=== PATIENT | male | born 1950 | race American Indian/Alaskan Native ===

== ENCOUNTER 2017-08-10 05:37 | Emergency (ER) | payer MEDICARE ==
[2017-08-10] MEDS ORDERED: ASPIRIN PO ONE (06:41)
[2017-08-10 07:34] LABS: Basophils % (Auto) 0.8 % (0.0-1.8); Hematocrit 44.8 % (35.5-45.6); Hemoglobin 14.9 gm/dl (11.8-15.2); Lymphocytes # (Auto) 1.6 K/mm3 (1.2-5.4); Lymphocytes % (Auto) 33.6 % (13.4-35.0); Mean Corpuscular HGB Conc 33 % (32-34); Mean Corpuscular Hemoglobin 29 pg (28-32); Mean Corpuscular Volume 87 fl (84-94); Monocytes # (Auto) 0.5 K/mm3 (0.0-0.8); Monocytes % (Auto) 10.8 % (0.0-7.3); Platelet Count 240 K/mm3 (140-440); Red Blood Count 5.16 M/mm3 (3.65-5.03); Red Cell Distribution Width 13.2 % (13.2-15.2)
[2017-08-10 07:42] LABS: INR 0.9 (0.87-1.13)
[2017-08-10 07:43] LABS: Partial Thromboplastin Time 29.5 Sec. (24.2-36.6)
[2017-08-10 07:52] LABS: BUN/Creatinine Ratio 10; Blood Urea Nitrogen 11 mg/dL (9-20); Hemolysis Index 10
--- NOTE | 2017-08-10 11:58 | Emergency Department Report ---
ED Chest Pain HPI - General Chief Complaint: Chest Pain Stated Complaint: CHEST PAIN,TOOTHACHE Time Seen by Provider: 08/10/17 11:35 Source: patient Mode of arrival: Ambulatory Limitations: No Limitations - History of Present Illness Initial Comments: PT. SAYS THAT A FEW DAYS EARLIER HE WAS HAVING PAIN ON THE RIGHT SIDE OF HIS JAW Complaint: chest pain Onset/Timin -: Gradual Time: 02:00 Onset: during rest Pain Location: substernal Pain Radiation: none Severity: moderate Severity scale (0 -10): 5 Quality: sharp Consistency: constant Improves With: other (WATER) Worsens With: nothing Treatments Prior to Arrival: none - Related Data Home Medications Medication Instructions Recorded Confirmed Last Taken Carisoprodol [Soma] 350 mg PO QDAY PRN 06/16/17 06/16/17 Unknown Oxycodone HCl/Acetaminophen 1 each PO QDAY PRN 06/16/17 06/16/17 Unknown [Percocet 10/325 mg] Previous Rx's Medication Instructions Recorded Last Taken Type Apixaban [Eliquis] 5 mg PO BID #60 tablet 06/19/17 Unknown Rx Apixaban [Eliquis] 10 mg PO Q12HR #14 tablet 06/19/17 Unknown Rx Omeprazole 20 mg PO DAILY 30 Days #30 08/10/17 Unknown Rx tablet. Allergies Allergy/AdvReac Type Severity Reaction Status Date / Time No Known Allergies Allergy Unverified 02/18/15 16:27 Heart Score - HEART Score History: Slightly suspicious EKG: Normal Age: > 65 Risk factors: No known risk factors Troponin: < normal limit HEART Score: 2 ED Review of Systems ROS: Stated complaint: CHEST PAIN,TOOTHACHE Other details as noted in HPI Comment: All other systems reviewed and negative ED Past Medical Hx - Past Medical History Hx Pulmonary Embolism: Yes Additional medical history: chronic lower back pain - Surgical History Past Surgical History?: No - Social History Smoking Status: Never Smoker Substance Use Type: None - Medications Home Medications: Home Medications Medication Instructions Recorded Confirmed Last Taken Type Carisoprodol [Soma] 350 mg PO QDAY PRN 06/16/17 06/16/17 Unknown History Oxycodone HCl/Acetaminophen 1 each PO QDAY PRN 06/16/17 06/16/17 Unknown History [Percocet 10/325 mg] Apixaban [Eliquis] 5 mg PO BID #60 tablet 06/19/17 Unknown Rx Apixaban [Eliquis] 10 mg PO Q12HR #14 tablet 06/19/17 Unknown Rx Omeprazole 20 mg PO DAILY 30 Days #30 08/10/17 Unknown Rx tablet. ED Physical Exam - General Limitations: No Limitations General appearance: alert, in no apparent distress - Head Head exam: Present: atraumatic, normocephalic - Eye Eye exam: Present: normal appearance - ENT ENT exam: Present: mucous membranes moist - Neck Neck exam: Present: normal inspection - Respiratory Respiratory exam: Present: normal lung sounds bilaterally. Absent: respiratory distress - Cardiovascular Cardiovascular Exam: Present: regular rate, normal rhythm. Absent: systolic murmur, diastolic murmur, rubs, gallop - GI/Abdominal GI/Abdominal exam: Present: soft, normal bowel sounds. Absent: tenderness - Rectal Rectal exam: Present: deferred - Extremities Exam Extremities exam: Present: normal inspection - Back Exam Back exam: Present: normal inspection, full ROM - Neurological Exam Neurological exam: Present: alert, oriented X3 - Psychiatric Psychiatric exam: Present: normal affect, normal mood - Skin Skin exam: Present: warm, dry, intact, normal color. Absent: rash ED Course Vital Signs 08/10/17 08/10/17 08/10/17 06:37 09:55 09:57 Temperature 98.6 F 98 F Pulse Rate 97 H 85 Respiratory 18 16 16 Rate Blood Pressure 152/96 Blood Pressure 116/79 [Left] O2 Sat by Pulse 99 100 100 Oximetry - Reevaluation(s) Reevaluation #1: 08/10/17 14:16 PT. SAID THE gi COCKTAIL HELPED HIS PAIN AND HE IS PAIN FREE RIGHT NOW. JACK score - Jack Score Age > 65: (1) Yes Aspirin use within the Past 7 Days: (0) No 3 or more CAD Risk Factors: (0) No 2 or more Angina events in past 24 hrs: (0) No Known CAD with more than 50% Stenosis: (0) No Elevated Cardiac Markers: (0) No ST Deviation Greater than 0.5mm: (0) No JACK Score: 1 ED Medical Decision Making - Lab Data Result diagrams: 08/10/17 07:16 08/10/17 07:16 - EKG Data -: EKG Interpreted by Me EKG shows normal: sinus rhythm (RATE OF 86), axis (NORMAL), intervals (NORMAL;) , QRS complexes (PVC'S), ST-T waves (NON SPECIFIC ST AND T WAVE CHANGES.) Critical care attestation.: If time is entered above; I have spent that time in minutes in the direct care of this critically ill patient, excluding procedure time. ED Disposition Clinical Impression: Gastritis, Atypical chest pain, GERD (gastroesophageal reflux disease) Disposition: TO HOME OR SELFCARE Is pt being admited?: No Does the pt Need Aspirin: No Condition: Stable Instructions: Chest Pain (ED), Gastroesophageal Reflux Disease (ED) Prescriptions: Omeprazole 20 mg PO DAILY 30 Days #30 tablet. Referrals: PRIMARY CARE, [Primary Care Provider] - 3-5 Days Time of Disposition: 14:22 Print Language: FINNISH
[2017-08-10] MEDS ORDERED: ALUM-MAG HYDROX-SIMETH 200-200-20MG/5ML PO ONE (12:01)
[2017-08-10] MEDS ORDERED: LIDOCAINE VISCOUS 2% PO ONE (12:01)
--- NOTE | 2017-08-10 12:42 | XRay Report ---
Single view chest: History: Chest pain. Findings: Normal cardiomediastinal silhouette the trachea is midline. No consolidation, pneumothorax or pleural effusion. Impression: No acute cardiopulmonary findings.
[2017-08-10 14:46] VITALS: BP 140/94
== END 2017-08-10 15:07 | disposition home or self-care (01) ==
LOC: ED 05:37
DX: K29.70 Gastritis, unspecified, without bleeding (principal); K21.9 Gastro-esophageal reflux disease without esophagitis
CPT/HCPCS: 36415; 71045; 80048; 84484; 85025; 85379; 85610; 85730; 93005; 93010; 99284

== ENCOUNTER 2018-08-12 06:44 | Day surgery (SDC) | payer MEDICARE ==
[2018-08-12] MEDS ORDERED: ECOTRIN PO NR (07:08)
[2018-08-12] MEDS ORDERED: NACL 0.9% 500 ML 500 ML IV SCH (08:00)
[2018-08-12] MEDS ORDERED: HEPARIN/NS 5000 UNIT/500ML(CATH LAB) 1,000 ML IR ONE (12:19)
[2018-08-12] MEDS ORDERED: CALAN ONE (12:19)
[2018-08-12] MEDS ORDERED: XYLOCAINE 2% INFILTRATI ONE (12:19)
[2018-08-12] MEDS: VERSED ONE ×2 (12:40→12:43)
[2018-08-12] MEDS: SUBLIMAZE ONE ×2 (12:40→12:43)
[2018-08-12] MEDS: HEPARIN 10,000 UNITS/10 ML ONE ×2 (12:44→12:52)
[2018-08-12] MEDS ORDERED: NACL 0.9% 100 ML ONE (12:50)
--- NOTE | 2018-08-12 13:35 | Cardiac Catherization Report ---
The patient is a 67-year-old -[place] gentleman with history of atypical chest pains, abnormal nuclear imaging, was scheduled for cardiac catheterization for diagnostic purposes. The patient is aware of the procedure, potential complications, alternatives of therapy available. DESCRIPTION OF PROCEDURE: The patient was brought to the catheterization laboratory in a fasting condition. The patient was prepared in a standard fashion. The patient was evaluated for moderate sedation and was felt to be appropriate candidate for moderate sedation. The patient received IV Versed and fentanyl. Local anesthesia was given in the right wrist area. Subsequently, 5-[place] slender sheath was introduced. A 5-[place] multipurpose catheter was used to obtain the angiograms of the left coronary, right coronary artery, left ventriculogram done in DUMAS and BON projection. Subsequently, it was felt that the patient has a borderline lesion in a large ramus branch. For further evaluation of this lesion, fractional flow reserve measurement was made in a standard fashion, namely the patient received extra dose of IV heparin. Diagnostic catheter was exchanged to 6-[place] EBU 3.5 guiding catheter. [place] pressure wire was set up in a standard fashion. The patient received IV adenosine as the vasodilator. Fraction flow reserve measurement was made, which was found to be 0.92, that is not hemodynamically significant. Subsequently, catheter and sheath were removed. Final angiogram showed no evidence of any complications. Radial sheath was removed and radial band was applied. The patient was sedated from 12:40 noon to 1:00 p.m. The patient was monitored with EKG, hemodynamic monitoring and pulse oximetry throughout the procedure. The patient tolerated the procedure well without any untoward complications. The patient was able to breath normally and communicating well at the end of the procedure. Following findings were noted. Hemodynamics: Aortic pressure is 103/63, left ventricular pressure 103/16, no gradient across the aortic valve. Estimated ejection fraction 65%. Left ventriculogram done in DUMAS projection using hand injection showed normal sized left ventricle with normal contractility. Mitral regurgitation could not be evaluated because of limited amount of dye injected. Right coronary artery, nondominant vessel, angiographically smooth without significant disease. Left coronary artery arises normally from left coronary cusp. Left main short and normal. LAD shows mild smooth 30% lesion. Diagonal branch without significant disease. Large ramus branch is seen, which showed a very focal proximal 60% lesion. FFR was measured of this lesion and this was found to be not significant, namely 0.92. Circumflex artery dominant vessel is angiographically smooth and normal. Circumflex artery is a codominant vessel. FINAL IMPRESSION: Mild LAD disease, 60% focal ramus lesion, which was found to be nonsignificant hemodynamically by FFR. Codominant RCA without significant disease. At this time, the patient has only nonobstructive disease. Considering the above angiographic findings would continue aggressive risk factor modification and medical therapy. The patient tolerated the procedure well. No untoward complications were noted. Findings were explained to the patient. JOB# [id number] DACIA/MICHAEL STARKS
[2018-08-12 15:05] VITALS: BP 114/72
--- NOTE | 2018-08-12 16:11 | Short Stay Summary ---
Short Stay Documentation Date of service: 08/12/18 - History H&P: obtained from office - Allergies and Medications Current Medications: Allergies No Known Allergies Allergy (Unverified 02/18/15 16:27) Home Medications Medication Instructions Recorded Confirmed Last Taken Type Aspirin [Aspir-Low] 81 mg PO DAILY 08/12/18 08/12/18 08/11/18 History 81mg Finasteride [Proscar] 5 mg PO DAILY 08/12/18 08/12/18 08/11/18 History 5mg Tamsulosin [Flomax] 0.4 mg PO DAILY 08/12/18 08/12/18 08/11/18 History 0.4mg Active Medications Sodium Chloride (Nacl 0.9% 500 Ml) 500 mls @ 50 mls/hr IV DIRECT LITA Stop: 08/12/18 17:59 Last Admin: 08/12/18 08:12 Dose: 50 mls/hr Documented by: - Brief post op/procedure progress note Date of procedure: 08/12/18 Pre-op diagnosis: abnormal stress test, cp Post-op diagnosis: other (CAD) Procedure: [facility] - see dictated cath report Anesthesia: local Estimated blood loss: none Condition: stable - Disposition Condition at discharge: Good Disposition: DC-01 TO HOME OR SELFCARE - Discharge Diagnoses (1) Mild CAD Status: Chronic (2) History of pulmonary embolism Status: Chronic (3) HTN (hypertension) Status: Chronic Qualifiers: Short Stay Discharge Plan Activity: advance as tolerated Diet: low fat, low cholesterol, low salt Wound: open to air, keep clean and dry, per your surgeon's advice Follow up with: LEYLA LOPES NP-C [Primary Care Provider] - 7 Days Forms: Sung PCI D/C Instructions, Work/School Excuse Out Patient
== END 2018-08-12 16:12 | disposition home or self-care (01) ==
LOC: CATHLABREC 06:44
PROVIDERS: ATTEND Internal Medicine
DX: I25.10 Atherosclerotic heart disease of native coronary artery without angina pectoris (principal); I10 Essential (primary) hypertension; Z86.711 Personal history of pulmonary embolism
CPT/HCPCS: 93005; 93010; 93458; 93571; 99156; C1769; C1887; C1894; J0153; J1644; J2250; J3010; J7040; Q9967

== ENCOUNTER 2019-05-28 17:52 | Emergency (ER) | payer MEDICARE ==
--- NOTE | 2019-05-28 21:28 | Event Note ---
ED Screening Note Date of service: 05/28/19 Time: 21:26 ED Screening Note: 68 y o male presents to Ed with bilateral leg pain x 2 month stating his pcp told him to come into The ER for an MRI He states he fell a month ago He denies any trauma, current injuries, or dificulty walking Ambulatory without any problems This initial assessment/diagnostic orders/clinical plan/treatment(s) is/are subject to change based on patients health status, clinical progression and re- assessment by fellow clinical providers in the ED. Further treatment and workup at subsequent clinical providers discretion. Patient/guardian urged not to elope from the ED as their condition may be serious if not clinically assessed and managed. Initial orders include: Pt presents with a non-medical emergency Examination is normal, Vital sign are stable Pt given information for clinics to follow up with pcp for further treatment and evaluation Also discussed strict return precautions in detail with pt who verbalized understanding
[2019-05-28 21:31] VITALS: BP 127/86
== END 2019-05-28 22:00 | disposition left against medical advice (07) ==
LOC: ED 17:52
DX: M79.605 Pain in left leg (principal); M79.604 Pain in right leg
CPT/HCPCS: 99282

== ENCOUNTER 2020-02-09 23:53 | Emergency (ER) | payer MEDICARE ==
[2020-02-10 01:08] LABS: Alanine Aminotransferase 13 units/L (7-56); Albumin 3.7 g/dL (3.9-5); BUN/Creatinine Ratio 12; Blood Urea Nitrogen 11 mg/dL (9-20); Calcium 8.9 mg/dL (8.4-10.2); Hemolysis Index 6
[2020-02-10 01:14] LABS: Basophils % (Auto) 0.8 % (0.0-1.8); Hematocrit 39.7 % (35.5-45.6); Hemoglobin 13.7 gm/dl (11.8-15.2); Lymphocytes # (Auto) 1.1 K/mm3 (1.2-5.4); Lymphocytes % (Auto) 24.4 % (13.4-35.0); Mean Corpuscular HGB Conc 34 % (32-34); Mean Corpuscular Volume 87 fl (84-94); Monocytes # (Auto) 0.3 K/mm3 (0.0-0.8); Monocytes % (Auto) 6.2 % (0.0-7.3); Platelet Count 228 K/mm3 (140-440); Red Blood Count 4.57 M/mm3 (3.65-5.03); Red Cell Distribution Width 13.1 % (13.2-15.2)
[2020-02-10] MEDS ORDERED: ONDANSETRON 4 MG ODT TAB PO ONE (02:39)
--- NOTE | 2020-02-10 02:39 | Emergency Department Report ---
ED N/V/D HPI - General Chief complaint: Nausea/Vomiting/Diarrhea Stated complaint: NAUSEA, VOMITING PUI?: No Time Seen by Provider: 02/10/20 02:35 Source: patient Mode of arrival: Ambulatory Limitations: No Limitations - History of Present Illness Initial comments: CC: "I think it is food poisoning. I think it is the rice." HPI: This is a 69 yo male with hx of PE, DVT, chronic back pain who presents with vomiting 3-4 times shortly after eating cooked rice for dinner. He has stomach upset without discrete pain. Son called for EMS evaluation. He was encouraged to come to ED by paramedics. He feels better at this time. Symptoms occurred 1-2 hours prior to ED arrival. No fever. No diarrhea. No cough. No sick contacts. MD complaint: nausea, vomiting -: Sudden, This evening Description of Vomiting: food contents Associated Abdominal Pain: No Severity: mild Pain Scale: 4 Quality: other (dull stomach upset) Consistency: now resolved Improves with: none Worsens with: none Context: possible food poisoning Associated Symptoms: denies other symptoms - Related Data Home Medications Medication Instructions Recorded Confirmed Last Taken Aspirin [Aspir-Low] 81 mg PO DAILY 08/12/18 08/12/18 08/11/18 81 mg Finasteride [Proscar] 5 mg PO DAILY 08/12/18 08/12/18 08/11/18 5 mg Tamsulosin [Flomax] 0.4 mg PO DAILY 08/12/18 08/12/18 08/11/18 0.4mg Previous Rx's Medication Instructions Recorded Last Taken Type Promethazine [Phenergan] 25 mg PO Q6HR PRN #10 tab 02/10/20 Unknown Rx Allergies Allergy/AdvReac Type Severity Reaction Status Date / Time No Known Allergies Allergy Unverified 02/18/15 16:27 ED Review of Systems ROS: Stated complaint: NAUSEA, VOMITING Other details as noted in HPI Comment: All other systems reviewed and negative Constitutional: denies: fever, malaise Respiratory: denies: cough Cardiovascular: denies: chest pain Gastrointestinal: abdominal pain, nausea, vomiting. denies: diarrhea ED Past Medical Hx - Past Medical History Previous Medical History?: Yes Hx Deep Vein Thrombosis: Yes Hx Pulmonary Embolism: Yes Additional medical history: chronic lower back pain - Surgical History Past Surgical History?: No - Social History Smoking Status: Never Smoker Substance Use Type: None - Medications Home Medications: Home Medications Medication Instructions Recorded Confirmed Last Taken Type Aspirin [Aspir-Low] 81 mg PO DAILY 08/12/18 08/12/18 08/11/18 History 81 mg Finasteride [Proscar] 5 mg PO DAILY 08/12/18 08/12/18 08/11/18 History 5 mg Tamsulosin [Flomax] 0.4 mg PO DAILY 08/12/18 08/12/18 08/11/18 History 0.4mg Promethazine [Phenergan] 25 mg PO Q6HR PRN #10 tab 02/10/20 Unknown Rx ED Physical Exam - General Limitations: No Limitations General appearance: alert, in no apparent distress - Head Head exam: Present: atraumatic, normocephalic - Eye Eye exam: Present: normal appearance - ENT ENT exam: Present: mucous membranes moist - Neck Neck exam: Present: normal inspection, full ROM - Respiratory Respiratory exam: Present: normal lung sounds bilaterally. Absent: respiratory distress, wheezes, rales, rhonchi - Cardiovascular Cardiovascular Exam: Present: regular rate, normal rhythm, normal heart sounds. Absent: systolic murmur, diastolic murmur, rubs, gallop - GI/Abdominal GI/Abdominal exam: Present: soft, normal bowel sounds. Absent: distended, tenderness, guarding, rebound - Rectal Rectal exam: Present: deferred - Extremities Exam Extremities exam: Present: normal inspection - Neurological Exam Neurological exam: Present: alert, oriented X3 - Psychiatric Psychiatric exam: Present: normal affect, normal mood - Skin Skin exam: Present: warm, dry, intact, normal color. Absent: rash ED Medical Decision Making - Lab Data Result diagrams: 02/10/20 00:20 02/10/20 00:20 Laboratory Results - last 24 hr 02/10/20 02/10/20 00:20 00:20 WBC 4.6 RBC 4.57 Hgb 13.7 Hct 39.7 MCV 87 MCH 30 MCHC 34 RDW 13.1 L Plt Count 228 Lymph % (Auto) 24.4 [place] % (Auto) 6.2 Eos % (Auto) 1.0 Baso % (Auto) 0.8 Lymph # 1.1 L [place] # 0.3 Eos # 0.0 Baso # 0.0 Seg Neutrophils % 67.6 Seg Neutrophils # 3.1 Sodium 138 Potassium 3.9 Chloride 101.0 Carbon Dioxide 24 Anion Gap 17 BUN 11 Creatinine 0.9 Estimated GFR > 60 BUN/Creatinine Ratio 12 Glucose 89 Calcium 8.9 Total Bilirubin 0.70 AST 17 ALT 13 Alkaline Phosphatase 53 Total Protein 7.3 Albumin 3.7 L Albumin/Globulin Ratio 1.0 - Medical Decision Making Mr. Garza presents with 3-4 episodes of emesis after eating rice for dinner. Food poisoning likely. No abdominal pain or fever. Patient appears well. cbc, bmp wnl dc'd with prescription of promethazine Critical care attestation.: If time is entered above; I have spent that time in minutes in the direct care of this critically ill patient, excluding procedure time. ED Disposition Clinical Impression: Vomiting, Food poisoning Disposition: DC-01 TO HOME OR SELFCARE Is pt being admited?: No Does the pt Need Aspirin: No Condition: Stable Instructions: Food Poisoning (ED) Prescriptions: Promethazine [Phenergan] 25 mg PO Q6HR PRN #10 tab PRN Reason: Nausea
== END 2020-02-10 02:48 | disposition home or self-care (01) ==
LOC: ED 23:53
DX: A05.9 Bacterial foodborne intoxication, unspecified (principal); R11.2 Nausea with vomiting, unspecified; Z86.718 Personal history of other venous thrombosis and embolism; Z86.711 Personal history of pulmonary embolism; Z79.899 Other long term (current) drug therapy
CPT/HCPCS: 36415; 80053; 85025; Q0162